=== PATIENT | male | born 1930 | race Caucasian/White ===

== ENCOUNTER 2017-08-18 14:13 | Inpatient (IN) ==
[2017-08-18] MEDS ORDERED: methylPREDNISolone SOD SUC 125 MG/2 ML VIAL IV STA (14:23)
[2017-08-18] MEDS ORDERED: ALBUTEROL 2.5 MG/3 ML NEB RESP TX SCH (14:30)
[2017-08-18] MEDS ORDERED: ALBUTEROL 2.5 MG/3 ML NEB RESP TX ONE (14:39)
[2017-08-18 14:50] LABS: Basophils % 0.1 % (0.0-0.8); Eosinophils % 0.1 % (0.00-10.9); Hematocrit 40.8 VOL% (42.0-52.0); Hemoglobin 12.6 GM/DL (14.0-18.0); Immature Granulocytes % 1.6 %; Immature Granulocytes Absolute 0.17 #; Lymphocytes # 0.4 10*3/uL (1.4-4.0); Mean Corpuscular HGB Conc 30.9 GM/DL (32-36); Mean Corpuscular Hemoglobin 30 PG (27-34); Mean Corpuscular Volume 98.3 FL (87-102); Mean Platelet Volume 9.2 FL (9.6-12.0); Monocytes # 0.7 10*3/uL (0.11-0.8); Monocytes % 6.3 % (1.7-12.7); Neutrophils # 9.1 10*3/uL (1.4-7.4); Neutrophils % 87.9 % (38.7-73.9); Platelet Count 150 T/CUMM (130-400); Red Blood Count 4.15 MC/CUMM (3.8-5.5); White Blood Count 10.4 T/CUMM (4-12)
[2017-08-18] MEDS ORDERED: SODIUM CHLORIDE 0.9% 500 ML IV STA (14:51)
[2017-08-18 15:06] LABS: PT Patient Result 10.8 SECS; Partial Thromboplastin Time 27.5 SECS (0-40)
[2017-08-18 15:10] LABS: ABG Base Excess 3.5 MMOL/L (-2.5-2.5); ABG HCO3 36.7 MMOL/L (20-26); ABG Oxygen Saturation 98.3 % (95-100); ABG PO2 172.9 MM HG (80-95); ABG TCO2 40.2 MMOL/L (23-27)
[2017-08-18 15:11] LABS: Albumin 3.5 G/DL (3.4-5.0); Bilirubin,Total 0.7 MG/DL (0.2-1.0); Calcium 9.2 MG/DL (8.5-10.1); Osmolality,Calculated 283.4 MOS/KG (273-304); Potassium 4.6 MMOL/L (3.5-5.1); Total Protein 7.6 G/DL (6.4-8.3)
[2017-08-18 15:12] LABS: ABG PH 7.123 (7.35-7.45)
[2017-08-18 15:13] LABS: ABG PCO2 114.6 MM HG (35-48)
[2017-08-18 15:15] LABS: Troponin I Only 0.055 NG/ML (0.00-0.045)
[2017-08-18] MEDS ORDERED: methylPREDNISolone SOD SUC 125 MG/2 ML VIAL ONE (16:24)
[2017-08-18] MEDS ORDERED: PIPERACILLIN/TAZOBACTAM 3,375 MG VIAL IV ONE (16:24)
[2017-08-18 16:30] LABS: Band Neutrophils 1 % (0-10); Lymphocytes 3 % (20-55); Platelet Estimate Normal; Segmented Neutrophils 92 % (50-85); Total Cells Counted 100
[2017-08-18 16:31] LABS: Polychromasia Few
[2017-08-18] MEDS: PIPERACILLIN/TAZOBACTAM 3,375 MG in SODIUM CHLORIDE 0.9% 100 ML IV SCH (17:33)
[2017-08-18] MEDS ORDERED: ALBUTEROL NEB SOLN 5 MG/ML 20 ML/BOTTLE CONT NEB STA (17:34)
[2017-08-18 17:43] LABS: Apearance,Urine CLOUDY (Clear); Bilirubin,Urine Negative (Negative); Blood, Urine Small mg/dL (Negative); Glucose,Urine (UA) Negative (Negative); Ketones,Urine 5 mg/dL (Negative); Mucus,Urine Occasional /LPF (Occasional); Nitrite,Urine Negative (Negative); Protein,Urine 100 MG/DL; RBC,Urine 5 /HPF (0-4); Squamous Epithelial Cell,Urine Occasional /HPF (0-10); Urine Color Yellow (Yellow); Urine Specific Gravity 1.025 (1.001-1.035); Urine Urobilinogen < 2.0 EU/DL (0.2-1.0); WBC,Urine 9 /HPF (0-6)
[2017-08-18] MEDS ORDERED: DILTIAZEM 50 MG/10 ML VIAL IV STA (19:04)
[2017-08-18] MEDS ORDERED: DILTIAZEM 100 MG VIAL.ADD IV ONE (19:42)
[2017-08-18] MEDS ORDERED: DILTIAZEM 50 MG/10 ML VIAL IV ONE (19:43)
[2017-08-18] MEDS: DILTIAZEM INJ 100 MG in SODIUM CHLORIDE 0.9% 100 ML IV SCH (20:03)
[2017-08-18] MEDS ORDERED: ONDANSETRON 4 MG/2 ML VIAL IV PRN (22:19)
[2017-08-18] MEDS ORDERED: ALBUTEROL 2.5 MG/3 ML NEB RESP TX PRN (22:19)
[2017-08-18] MEDS ORDERED: ACETAMINOPHEN 325 MG TABLET PO PRN (22:19)
[2017-08-18] MEDS ORDERED: AMINOPHYLLINE 500 MG in SODIUM CHLORIDE 0.9% 100 ML IV ONE (22:19)
[2017-08-18 22:22] LABS: CKMB % 2.9 %
[2017-08-18 22:23] LABS: Troponin I Only 0.06 NG/ML (0.00-0.045)
[2017-08-18] MEDS ORDERED: AMINOPHYLLINE 500 MG/20 ML VIAL IV ONE (22:24)
[2017-08-18] MEDS: ALBUTEROL/IPRATROPIUM 3 ML NEB RESP TX SCH ×2 (22:30→22:54)
[2017-08-18] MEDS: methylPREDNISolone SOD SUC 125 MG/2 ML VIAL IV SCH (22:40)
[2017-08-19] MEDS ORDERED: SODIUM CHLORIDE 0.9% 100 ML IV ONE (00:16)
[2017-08-19] MEDS ORDERED: PIPERACILLIN/TAZOBACTAM 3,375 MG VIAL IV ONE (00:16)
[2017-08-19] MEDS: AMINOPHYLLINE 500 MG in SODIUM CHLORIDE 0.9% 480 ML IV SCH ×2 (00:30→20:46)
[2017-08-19] MEDS: PIPERACILLIN/TAZOBACTAM 3,375 MG in SODIUM CHLORIDE 0.9% 100 ML IV SCH ×3 (00:40→16:39)
[2017-08-19] MEDS: TAMSULOSIN 0.4 MG CAPSULE PO SCH ×3 (00:51→21:07)
[2017-08-19 03:21] LABS: Allen Test Positive
[2017-08-19 03:22] LABS: ABG Base Excess 4.2 MMOL/L (-2.5-2.5); ABG HCO3 33.3 MMOL/L (20-26); ABG Oxygen Saturation 92.3 % (95-100); ABG PH 7.269 (7.35-7.45); ABG PO2 64.9 MM HG (80-95); ABG TCO2 35.6 MMOL/L (23-27)
[2017-08-19 03:25] LABS: ABG PCO2 74.4 MM HG (35-48)
[2017-08-19] MEDS: ALBUTEROL/IPRATROPIUM 3 ML NEB RESP TX SCH ×5 (03:33→18:11)
[2017-08-19] MEDS: methylPREDNISolone SOD SUC 125 MG/2 ML VIAL IV SCH ×4 (04:46→21:02)
[2017-08-19 05:28] LABS: Eosinophils % 0.1 % (0.00-10.9); Hematocrit 38.2 VOL% (42.0-52.0); Immature Granulocytes % 0.9 %; Immature Granulocytes Absolute 0.07 #; Lymphocytes # 0.2 10*3/uL (1.4-4.0); Lymphocytes % 2.8 % (21.2-54.2); Mean Corpuscular HGB Conc 31.4 GM/DL (32-36); Mean Corpuscular Hemoglobin 31 PG (27-34); Mean Platelet Volume 9.4 FL (9.6-12.0); Monocytes # 0.3 10*3/uL (0.11-0.8); Monocytes % 3.7 % (1.7-12.7); Neutrophils # 7.2 10*3/uL (1.4-7.4); Neutrophils % 92.5 % (38.7-73.9); Platelet Count 158 T/CUMM (130-400); Red Blood Count 3.94 MC/CUMM (3.8-5.5); White Blood Count 7.8 T/CUMM (4-12)
[2017-08-19 06:03] LABS: CKMB % 3.3 %
[2017-08-19 06:04] LABS: Band Neutrophils 6 % (0-10); Hypochromasia 1+; Lymphocytes 1 % (20-55); Segmented Neutrophils 89 % (50-85); Total Cells Counted 100; Troponin I Only 0.065 NG/ML (0.00-0.045)
[2017-08-19 06:05] LABS: Microcytosis 1+; Platelet Estimate Adequate
[2017-08-19 06:10] LABS: Calcium 8.6 MG/DL (8.5-10.1); Osmolality,Calculated 289.4 MOS/KG (273-304); Potassium 4.2 MMOL/L (3.5-5.1)
[2017-08-19] MEDS: DILTIAZEM INJ 100 MG in SODIUM CHLORIDE 0.9% 100 ML IV SCH ×3 (06:23→18:31)
[2017-08-19] MEDS ORDERED: FINASTERIDE 5 MG TABLET PO SCH (09:00)
[2017-08-19] MEDS: PANTOPRAZOLE 40 MG TABLET PO SCH (09:39)
[2017-08-19] MEDS ORDERED: SODIUM CHLORIDE 0.9% 500 ML IV ONE (13:56)
[2017-08-19] MEDS ORDERED: SODIUM CHLORIDE 0.9% 250 ML IV ONE (15:47)
[2017-08-19] MEDS: MONTELUKAST 10 MG TABLET PO SCH (16:34)
[2017-08-19] MEDS: ASPIRIN EC 81 MG TABLET PO SCH (16:34)
[2017-08-19] MEDS: SODIUM CHLORIDE 0.9% 1,000 ML IV SCH (16:43)
[2017-08-19] MEDS: MORPHINE 2 MG/1 ML SYRINGE IV PRN ×3 (20:56→23:38)
[2017-08-20] MEDS: ALBUTEROL/IPRATROPIUM 3 ML NEB RESP TX SCH ×5 (00:17→15:31)
[2017-08-20] MEDS: MORPHINE 2 MG/1 ML SYRINGE IV PRN ×6 (00:38→10:27)
[2017-08-20] MEDS: PIPERACILLIN/TAZOBACTAM 3,375 MG in SODIUM CHLORIDE 0.9% 100 ML IV SCH ×2 (01:46→08:49)
[2017-08-20] MEDS: DILTIAZEM INJ 100 MG in SODIUM CHLORIDE 0.9% 100 ML IV SCH ×2 (01:47→08:51)
[2017-08-20] MEDS: methylPREDNISolone SOD SUC 125 MG/2 ML VIAL IV SCH ×2 (03:10→09:44)
[2017-08-20] MEDS ORDERED: FUROSEMIDE 40 MG/4 ML VIAL IV ONE (08:10)
[2017-08-20] MEDS: PANTOPRAZOLE 40 MG TABLET PO SCH (08:39)
[2017-08-20] MEDS: TAMSULOSIN 0.4 MG CAPSULE PO SCH (08:39)
[2017-08-20] MEDS: MONTELUKAST 10 MG TABLET PO SCH (08:39)
[2017-08-20] MEDS: ASPIRIN EC 81 MG TABLET PO SCH (08:39)
[2017-08-20] MEDS ORDERED: SCOPOLAMINE 1.5 MG PATCH TRANSDERM ONE (09:00)
[2017-08-20] MEDS: SODIUM CHLORIDE 0.9% 1,000 ML IV SCH (09:27)
[2017-08-20] MEDS: LORazepam 2 MG/1 ML VIAL IV PRN ×2 (09:45→21:58)
[2017-08-20] MEDS ORDERED: SCOPOLAMINE 1.5 MG PATCH TRANSDERM SCH (20:58)
[2017-08-20] MEDS ORDERED: FUROSEMIDE 40 MG/4 ML VIAL IV SCH (21:00)
[2017-08-20 21:27] VITALS: BP 70/29
== END 2017-08-21 | disposition expired | DRG 177 ==
LOC: EDUNIT# → EDBD → N.ED 14:13 → N.EDINP 17:36 → N.CC 23:10 → N.5E 08-20 20:57
PROVIDERS: ADMIT Internal Medicine; ATTEND Internal Medicine